=== PATIENT | female | born 1980 | race Caucasian/White ===

== ENCOUNTER 2016-08-10 22:03 | Emergency (ER) | payer SELFPAY ==
[~2016-08-10 22:03] MED LIST: KEFLEX500 M1 PO; KETOPROFEN PO; MUCINEX DM1 TAB.SR . PO; NORCO 5/325 TAB1 TAB PO; PERCOCET5/325 PO; PHENERGAN PO; TYL325 PO; TYLENOL325 M1; ZITHROMAX PO; ZOLOFT PO
== END 2016-08-10 22:39 | disposition home or self-care (01) ==
LOC: SED 22:03
DX: R11.2 Nausea with vomiting, unspecified (principal); R19.7 Diarrhea, unspecified; F17.200 Nicotine dependence, unspecified, uncomplicated
CPT/HCPCS: 99283